=== PATIENT | female | born 1980 | race Hispanic/Latino ===

== ENCOUNTER 2021-09-07 13:17 | Observation (INO) | payer OTHER ==
[~2021-09-07] VITALS: Ht 157.5 cm; Wt 106.1 kg
[2021-09-07 13:37] VITALS: BP 127/89
[2021-09-07 14:34] LABS: APPEARANCE,URINE Clear (CLEAR); BILIRUBIN,URINE Negative (NEGATIVE); COLOR,URINE Yellow (YELLOW); GLUCOSE, URINE (UA) 250 mg/dL (NEGATIVE); KETONES,URINE 15 mg/dL (NEGATIVE); LEUKOCYTE ESTERASE ,URINE Negative (NEGATIVE); NITRATE,URINE Negative (NEGATIVE); OCCULT BLOOD,URINE Negative (NEGATIVE); PROTEIN,URINE Trace mg/dL (NEGATIVE)
[2021-09-07 14:42] LABS: BACTERIA,URINE Moderate /HPF (None Seen); MUCUS,URINE Moderate LPF (None Seen); SQUAMOUS EPITHELIAL CELL,UR Many /HPF (0-2)
== END 2021-09-07 15:50 | disposition home or self-care (01) ==
LOC: EDH 13:17 → LDH 13:18
PROVIDERS: ADMIT Obstetrics & Gynecology; ATTEND Obstetrics & Gynecology
DX: O26.893 Other specified pregnancy related conditions, third trimester (principal); R55 Syncope and collapse; O09.523 Supervision of elderly multigravida, third trimester; O24.410 Gestational diabetes mellitus in pregnancy, diet controlled; O36.8130 Decreased fetal movements, third trimester, not applicable or unspecified; Z3A.35 35 weeks gestation of pregnancy; Z90.49 Acquired absence of other specified parts of digestive tract; Z98.891 History of uterine scar from previous surgery
CPT/HCPCS: 59025; 76819; 81001; 82948; 87088; 99284; G0378 ×2; J7120

== ENCOUNTER 2021-09-29 11:37 | Observation (INO) | payer OTHER ==
[~2021-09-29] VITALS: Ht 157.5 cm; Wt 107.5 kg
[2021-09-29 11:40] VITALS: BP 115/64
== END 2021-09-29 13:20 | disposition home or self-care (01) ==
LOC: EDH 11:37 → LDH 11:38
PROVIDERS: ADMIT Obstetrics & Gynecology; ATTEND Obstetrics & Gynecology
DX: O99.891 Other specified diseases and conditions complicating pregnancy (principal); M54.50 Low back pain, unspecified; O26.893 Other specified pregnancy related conditions, third trimester; N89.8 Other specified noninflammatory disorders of vagina; R10.9 Unspecified abdominal pain; Z3A.37 37 weeks gestation of pregnancy
CPT/HCPCS: 59025; G0378 ×2; G0379

== ENCOUNTER 2021-10-06 04:57 | Inpatient (IN) | payer OTHER ==
[~2021-10-06] VITALS: Ht 157.5 cm; Wt 107.5 kg
[2021-10-06] MEDS ORDERED: CEFAZOLIN SODIUM 1 GM VIAL IVP PRN (05:30)
[2021-10-06 05:54] LABS: HEMATOCRIT 29.8 % (36-48); MEAN CORPUSCULAR HEMOGLOBIN 28.9 pg (27.0-33.0); MEAN CORPUSCULAR HGB CONC 32.9 g/dL (32.0-36.0); MEAN CORPUSCULAR VOLUME 87.9 fL (79-99); RED BLOOD CELL COUNT(AUTO) 3.39 MIL/uL (4.00-5.50); RED CELL DISTRIBUTION WIDTH 14.3 % (11.0-15.5); WHITE BLOOD COUNT (AUTO) 7.6 K/uL (4.8-10.8)
[2021-10-06] MEDS ORDERED: OXYTOCIN-LR 20 UNITS/1000 ML 2,000 ML IV ONE (07:17)
[2021-10-06 07:28] VITALS: BP 127/72
[2021-10-06] MEDS ORDERED: PREN-196 PO (07:33)
[2021-10-06] MEDS ORDERED: SERT50TA PO (07:33)
[2021-10-06] MEDS ORDERED: METOCLOPRAMIDE 10 MG/2 ML VIAL ONE (07:37)
[2021-10-06] MEDS ORDERED: MORPHINE PF 100MG/10ML AMP IV ONE (07:54)
[2021-10-06] MEDS ORDERED: FENTANYL CITRATE PF 50 MCG/1 ML 2ML VIAL ONE (07:54)
[2021-10-06] MEDS ORDERED: EPHEDRINE SULFATE 50 MG/ML AMPULE ONE (08:06)
[2021-10-06] MEDS ORDERED: ONDANSETRON 4MG INJ ONE (08:08)
[2021-10-06] MEDS ORDERED: MEPERIDINE-PF 50 MG/ML SYG ONE (08:23)
[2021-10-06] MEDS ORDERED: ONDANSETRON 4MG INJ IVP PRN (09:30)
[2021-10-06] MEDS ORDERED: NALOXONE HCL 0.4 MG/1 ML ML IVP PRN (09:30)
[2021-10-06] MEDS ORDERED: EPHEDRINE SULFATE 50 MG/ML AMPULE IVP PRN (09:30)
[2021-10-06] MEDS ORDERED: DiphenhydrAMINE HCL 50 MG/ML VIAL IVP PRN (09:30)
[2021-10-06] MEDS ORDERED: LORATADINE 10 MG TABLET PO PRN (09:30)
[2021-10-06] MEDS ORDERED: METOCLOPRAMIDE 10 MG/2 ML VIAL IVP SCH (09:30)
[2021-10-06] MEDS ORDERED: 0.9%NACL 10ML VIAL IVP PRN (10:30)
[2021-10-06] MEDS ORDERED: OXYTOCIN-LR 20 UNITS/1000 ML 1,000 ML IV PRN (10:30)
[2021-10-06] MEDS ORDERED: DEXTROSE 5 %-0.45 % NACL 1,000 ML IV PRN (10:30)
[2021-10-06] MEDS: PROMETHAZINE HCL 25 MG/ML 1ML AMPULE IM PRN ×2 (10:46→17:58)
[2021-10-06] MEDS: MEPERIDINE-PF 75 MG/ML SYG IM PRN ×2 (10:46→17:58)
[2021-10-06 12:04] VITALS: BP 121/66
[2021-10-06 16:32] VITALS: BP 117/59
[2021-10-06] MEDS: LACTATED RINGERS 1000ML 1,000 ML IV SCH (19:43)
[2021-10-06 20:10] VITALS: BP 105/63
[2021-10-06 23:49] VITALS: BP 109/66
[2021-10-07] MEDS: LACTATED RINGERS 1000ML 1,000 ML IV SCH (03:35)
[2021-10-07 03:44] VITALS: BP 106/68
[2021-10-07 05:35] LABS: HEMATOCRIT 27.4 % (36-48); MEAN CORPUSCULAR HEMOGLOBIN 28.1 pg (27.0-33.0); MEAN CORPUSCULAR HGB CONC 32.8 g/dL (32.0-36.0); MEAN CORPUSCULAR VOLUME 85.6 fL (79-99); RED BLOOD CELL COUNT(AUTO) 3.2 MIL/uL (4.00-5.50); RED CELL DISTRIBUTION WIDTH 14.2 % (11.0-15.5); WHITE BLOOD COUNT (AUTO) 7.2 K/uL (4.8-10.8)
[2021-10-07] MEDS: ACETAMINOPHEN WITH CODEINE 1 TAB TAB PO PRN ×2 (05:56→16:51)
[2021-10-07 07:15] LABS: HEPATITIS Bs ANTIGEN SCREEN P Negative (Negative)
[2021-10-07] MEDS ORDERED: ACETAMINOPHEN 500 MG TABLET PO PRN (09:00)
[2021-10-07] MEDS ORDERED: BISACODYL 10 MG SUPP.RECT RC PRN (09:00)
[2021-10-07] MEDS ORDERED: IBUPROFEN 600 MG TABLET PO PRN (09:00)
[2021-10-07] MEDS: DOCUSATE SODIUM 100 MG CAP PO SCH ×2 (09:18→21:36)
[2021-10-07] MEDS: SIMETHICONE 80 MG TAB.CHEW PO PRN ×3 (09:18→21:36)
[2021-10-07] MEDS: IBUPROFEN 800 MG TAB PO SCH ×2 (09:19→17:35)
[2021-10-07] MEDS ORDERED: IBUPROFEN 800 MG TAB PO SCH (10:30)
[2021-10-07] MEDS: HYDROCODONE/ACETAMINOPHEN 5/325 MG TAB PO PRN (11:04)
[2021-10-07 11:42] VITALS: BP 105/55
[2021-10-07 16:39] VITALS: BP 100/58
[2021-10-07 19:58] VITALS: BP 120/71
[2021-10-08 00:17] VITALS: BP 115/71
[2021-10-08] MEDS: IBUPROFEN 800 MG TAB PO SCH ×2 (01:35→08:38)
[2021-10-08] MEDS: HYDROCODONE/ACETAMINOPHEN 5/325 MG TAB PO PRN (01:45)
[2021-10-08 03:09] VITALS: BP 116/54
[2021-10-08 07:20] VITALS: BP 110/58
[2021-10-08] MEDS: DOCUSATE SODIUM 100 MG CAP PO SCH (08:36)
[2021-10-08] MEDS: SIMETHICONE 80 MG TAB.CHEW PO PRN (08:36)
[2021-10-08] MEDS: ACETAMINOPHEN WITH CODEINE 1 TAB TAB PO PRN (11:24)
[2021-10-08 11:53] VITALS: BP 108/73
[2021-10-08] MEDS ORDERED: ACET1TAB25 PO (12:53)
== END 2021-10-08 13:35 | disposition home or self-care (01) | DRG 785 ==
LOC: OBSVTOIN 04:57 → LDH 04:57 → WSH 11:55
PROVIDERS: ADMIT Obstetrics & Gynecology; ATTEND Obstetrics & Gynecology
PROC: 0UB70ZZ Excision of Bilateral Fallopian Tubes, Open Approach (ICD-10-PCS; 2021-10-06)
PROC: 0UB00ZZ Excision of Right Ovary, Open Approach (ICD-10-PCS; 2021-10-06)
PROC: 10D00Z1 Extraction of Products of Conception, Low, Open Approach (ICD-10-PCS; principal; 2021-10-06 08:00)
DX: O34.211 Maternal care for low transverse scar from previous cesarean delivery (principal); O24.425 Gestational diabetes mellitus in childbirth, controlled by oral hypoglycemic drugs; O99.214 Obesity complicating childbirth; Z20.822 Contact with and (suspected) exposure to COVID-19; E66.9 Obesity, unspecified; O34.83 Maternal care for other abnormalities of pelvic organs, third trimester; N83.201 Unspecified ovarian cyst, right side; Z30.2 Encounter for sterilization; Z37.0 Single live birth; Z3A.38 38 weeks gestation of pregnancy; Z83.3 Family history of diabetes mellitus; Z82.49 Family history of ischemic heart disease and other diseases of the circulatory system
CPT/HCPCS: 36415; 59510; 82947; 85027; 86592; 86850; 86900; 86901; 87340; 87635; A4344; G0378; J0690; J1200; J2175; J2274; J2405; J2550; J2590; J2765; J3010; J3490; J7120